=== PATIENT | female | born 1990 | race African-American/Black ===

== ENCOUNTER 2018-12-29 07:56 | Emergency (ER) | payer MEDICAID ==
[~2018-12-29] VITALS: Ht 162.6 cm; Wt 91.0 kg
[2018-12-29] MEDS ORDERED: KETOROLAC 30MG/ML VIAL IV STA (08:54)
[2018-12-29] MEDS ORDERED: SODIUM CHLORIDE 0.9% 1,000 ML IV ONE (08:54)
[2018-12-29] MEDS ORDERED: ACETAMINOPHEN 325MG TABLET PO ONE (09:00)
[2018-12-29 09:09] LABS: CLARITY URINE CLOUDY (CLEAR); COLOR URINE DARK YELLOW (YELLOW); KETONES URINE 1+ (NEGATIVE); LEUKOCYTE ESTERASE URINE NEGATIVE (NEGATIVE); NITRITE URINE NEGATIVE (NEGATIVE); OCCULT BLOOD URINE NEGATIVE (NEGATIVE); PH URINE 5.5 (4.5-8.0); PROTEIN URINE 1+ (NEGATIVE); SPECIFIC GRAVITY URINE 1.032 (1.005-1.030)
[2018-12-29 09:24] LABS: BASOPHILS % 0.2 % (0.0-2.0); EOSINOPHILS % 0.1 % (0.0-5.0); HEMATOCRIT. 39.6 % (36.0-48.0); HEMOGLOBIN. 12.9 g/dL (12.0-16.0); LYMPHOCYTES % 12.1 % (20.0-50.0); MEAN CORPUSCULAR HEMOGLOBIN 25.9 pg (28.0-32.0); MEAN CORPUSCULAR VOLUME 79.2 fL (81.0-99.0); MEAN PLATELET VOLUME 8.6 fl (7.4-10.4); MONOCYTES % 7.7 % (2.0-8.0); NEUTROPHILS % 79.9 % (40.0-76.0); PLATELET 235 x1000/uL (130-400); RED CELL DISTRIBUTION WIDTH 14.5 % (11.6-14.6)
[2018-12-29 09:30] LABS: CHLORIDE 103 mEq/L (98-107)
[2018-12-29 11:00] VITALS: BP 115/50
== END 2018-12-29 11:05 | disposition home or self-care (01) ==
LOC: ER 07:56
DX: J02.0 Streptococcal pharyngitis (principal); Z88.0 Allergy status to penicillin
CPT/HCPCS: 36415; 80053; 81003; 81025; 82962; 85025; 87430; 93005; 96374; 99284; J1885; J7030; Z7610

== ENCOUNTER 2022-07-22 23:11 | Emergency (ER) | payer MEDICAID, OTHER ==
[~2022-07-22] VITALS: Ht 162.6 cm; Wt 62.6 kg
[2022-07-23 00:07] VITALS: BP 137/88
== END 2022-07-23 02:18 | disposition left against medical advice (07) ==
LOC: ER 23:11
DX: Z53.21 Procedure and treatment not carried out due to patient leaving prior to being seen by health care provider (principal); R00.0 Tachycardia, unspecified; J45.909 Unspecified asthma, uncomplicated; Z98.84 Bariatric surgery status; Z88.0 Allergy status to penicillin; Z91.018 Allergy to other foods
CPT/HCPCS: 93005

== ENCOUNTER 2023-01-03 07:53 | Emergency (ER) | payer OTHER ==
[~2023-01-03] VITALS: Ht 162.6 cm; Wt 62.0 kg
[2023-01-03] MEDS ORDERED: LEVO5DRO20 EACHEYE (08:48)
[2023-01-03] MEDS ORDERED: GLYC30DR OP (08:48)
[2023-01-03] MEDS ORDERED: [UNRECOGNIZED DRUG - CODE] MC (09:17)
[2023-01-03 09:25] VITALS: BP 113/89
== END 2023-01-03 09:29 | disposition home or self-care (01) ==
LOC: ER 08:03
DX: H10.33 Unspecified acute conjunctivitis, bilateral (principal); J45.909 Unspecified asthma, uncomplicated; Z88.0 Allergy status to penicillin; Z91.018 Allergy to other foods
CPT/HCPCS: 81025; 99283